=== PATIENT | male | born 1965 | race Hispanic/Latino ===

== ENCOUNTER 2016-12-08 14:35 | Emergency (ER) | payer BC ==
[~2016-12-08] VITALS: Ht 182.9 cm; Wt 105.7 kg
== END 2016-12-08 16:00 | disposition home or self-care (01) ==
LOC: ED 14:35
DX: S61.012A Laceration without foreign body of left thumb without damage to nail, initial encounter (principal); W29.8XXA Contact with other powered hand tools and household machinery, initial encounter; Y92.098 Other place in other non-institutional residence as the place of occurrence of the external cause
CPT/HCPCS: 90471; 90715; 96372; 99282; J0696; J1885

== ENCOUNTER 2018-09-24 08:59 | Outpatient (CLI) | payer OTHER | END 2018-09-24 19:22 | disposition home or self-care (01) | LOC: MRI 08:59 | DX: M79.642 Pain in left hand (principal) ==

== ENCOUNTER 2018-09-29 10:30 | Outpatient (CLI) | payer OTHER | END 2018-09-29 21:25 | disposition home or self-care (01) | LOC: RESP 10:30 | DX: R00.2 Palpitations (principal); R00.1 Bradycardia, unspecified; R42 Dizziness and giddiness; R06.09 Other forms of dyspnea | CPT/HCPCS: 93225 ==

== ENCOUNTER 2019-05-10 09:12 | Outpatient (CLI) | payer OTHER ==
[2019-05-10 09:53] LABS: PLATELET COUNT 261 K/uL (142-355)
[2019-05-10 10:18] LABS: POTASSIUM 4.4 mmol/L (3.6-5.2)
== END 2019-05-10 22:46 | disposition home or self-care (01) ==
LOC: LABW 09:12
PROVIDERS: Family Medicine
DX: E29.1 Testicular hypofunction (principal); E55.9 Vitamin D deficiency, unspecified; R53.83 Other fatigue; I10 Essential (primary) hypertension
CPT/HCPCS: 36415; 80053; 80061; 82306; 82607; 82747; 84153; 84402; 84403; 84443; 85027

== ENCOUNTER 2019-05-18 10:40 | Outpatient (CLI) | payer OTHER | END 2019-05-18 22:31 | disposition home or self-care (01) | LOC: CT 10:40 | DX: Z13.6 Encounter for screening for cardiovascular disorders (principal); R06.02 Shortness of breath; E78.00 Pure hypercholesterolemia, unspecified; E78.1 Pure hyperglyceridemia ==

== ENCOUNTER 2019-07-13 07:56 | Day surgery (SDC) | payer OTHER | END 2019-07-13 10:00 | disposition home or self-care (01) | LOC: OR 07:56 | PROC: 3E0T3BZ Introduction of Anesthetic Agent into Peripheral Nerves and Plexi, Percutaneous Approach (ICD-10-PCS; principal; 2019-07-13) | PROC: 3E0T33Z Introduction of Anti-inflammatory into Peripheral Nerves and Plexi, Percutaneous Approach (ICD-10-PCS; 2019-07-13) | PROC: BR16YZZ Fluoroscopy of Lumbar Facet Joint(s) using Other Contrast (ICD-10-PCS; 2019-07-13) | DX: M47.817 Spondylosis without myelopathy or radiculopathy, lumbosacral region (principal) | CPT/HCPCS: J1100; J2001 ==

== ENCOUNTER 2019-08-03 09:06 | Day surgery (SDC) | payer OTHER ==
[~2019-08-03] VITALS: Ht 185.4 cm; Wt 114.8 kg
== END 2019-08-03 12:15 | disposition home or self-care (01) ==
LOC: OR 09:06
PROC: 3E0T3BZ Introduction of Anesthetic Agent into Peripheral Nerves and Plexi, Percutaneous Approach (ICD-10-PCS; principal; 2019-08-03)
PROC: 3E0T33Z Introduction of Anti-inflammatory into Peripheral Nerves and Plexi, Percutaneous Approach (ICD-10-PCS; 2019-08-03)
PROC: BR16YZZ Fluoroscopy of Lumbar Facet Joint(s) using Other Contrast (ICD-10-PCS; 2019-08-03)
DX: M47.817 Spondylosis without myelopathy or radiculopathy, lumbosacral region (principal)
CPT/HCPCS: J1100; J2001

== ENCOUNTER 2019-11-29 15:15 | Outpatient (CLI) | payer OTHER ==
[2019-11-29 15:36] LABS: PLATELET COUNT 226 K/uL (142-355)
[2019-11-29 16:12] LABS: POTASSIUM 4.7 mmol/L (3.6-5.2)
== END 2019-11-29 19:06 | disposition home or self-care (01) ==
LOC: LAB 15:15
PROVIDERS: Nurse Practitioner Family
DX: Z00.00 Encounter for general adult medical examination without abnormal findings (principal); I10 Essential (primary) hypertension; E55.9 Vitamin D deficiency, unspecified; N52.9 Male erectile dysfunction, unspecified; M54.9 Dorsalgia, unspecified; R53.83 Other fatigue; E78.1 Pure hyperglyceridemia; G47.33 Obstructive sleep apnea (adult) (pediatric); Z79.899 Other long term (current) drug therapy
CPT/HCPCS: 80053; 80061; 82306; 82607; 82670; 83001; 83036; 84402; 84403; 84439; 84443; 84481; 85027; 86376

== ENCOUNTER 2020-02-23 08:32 | Outpatient (CLI) | payer OTHER | END 2020-02-23 21:36 | disposition home or self-care (01) | LOC: MRI 08:32 | DX: M54.12 Radiculopathy, cervical region (principal) ==

== ENCOUNTER 2020-02-28 12:40 | Outpatient (CLI) | payer OTHER | END 2020-02-28 19:27 | disposition home or self-care (01) | LOC: MRI 12:40 | DX: M25.512 Pain in left shoulder (principal) ==

== ENCOUNTER 2020-03-10 09:26 | Outpatient (CLI) | payer OTHER | END 2020-03-10 19:00 | disposition home or self-care (01) | LOC: RAD 09:26 | DX: M25.512 Pain in left shoulder (principal) ==

== ENCOUNTER 2020-04-06 07:31 | Outpatient (CLI) | payer OTHER ==
[2020-04-06 08:20] LABS: PLATELET COUNT 210 K/uL (142-355)
[2020-04-06 08:41] LABS: POTASSIUM 4.1 mmol/L (3.6-5.2)
== END 2020-04-06 19:05 | disposition home or self-care (01) ==
LOC: LABW 07:31
PROVIDERS: Internal Medicine
DX: R94.31 Abnormal electrocardiogram [ECG] [EKG] (principal); Z87.891 Personal history of nicotine dependence; T46.6X5S Adverse effect of antihyperlipidemic and antiarteriosclerotic drugs, sequela; I10 Essential (primary) hypertension; Z71.41 Alcohol abuse counseling and surveillance of alcoholic; G47.30 Sleep apnea, unspecified; E78.2 Mixed hyperlipidemia; R06.02 Shortness of breath; Z68.36 Body mass index [BMI] 36.0-36.9, adult
CPT/HCPCS: 36415; 80048; 80061; 80076; 85027; 85610

== ENCOUNTER 2020-06-27 07:35 | Outpatient (CLI) | payer OTHER ==
[2020-06-27 08:26] LABS: PLATELET COUNT 215 K/uL (142-355)
== END 2020-06-27 23:46 | disposition home or self-care (01) ==
LOC: LABW 07:35
PROVIDERS: Internal Medicine Cardiovascular Disease
DX: R78.81 Bacteremia (principal)
CPT/HCPCS: 36415; 85027; 85651; 86140; 87040

== ENCOUNTER 2020-07-05 07:39 | Outpatient (CLI) | payer OTHER ==
[2020-07-05 08:29] LABS: POTASSIUM 4.3 mmol/L (3.6-5.2)
== END 2020-07-05 23:13 | disposition home or self-care (01) ==
LOC: LABW 07:39
PROVIDERS: Internal Medicine Cardiovascular Disease
DX: R94.31 Abnormal electrocardiogram [ECG] [EKG] (principal); Z87.891 Personal history of nicotine dependence; T46.6X5S Adverse effect of antihyperlipidemic and antiarteriosclerotic drugs, sequela; I10 Essential (primary) hypertension; Z71.41 Alcohol abuse counseling and surveillance of alcoholic; G47.30 Sleep apnea, unspecified; E78.2 Mixed hyperlipidemia; Z95.5 Presence of coronary angioplasty implant and graft; G72.0 Drug-induced myopathy; Z68.35 Body mass index [BMI] 35.0-35.9, adult; Z68.36 Body mass index [BMI] 36.0-36.9, adult; Z95.0 Presence of cardiac pacemaker; I87.2 Venous insufficiency (chronic) (peripheral)
CPT/HCPCS: 36415; 80053; 80061; 84443

== ENCOUNTER 2020-07-26 07:32 | Outpatient (CLI) | payer OTHER ==
[2020-07-26 08:45] LABS: POTASSIUM 4.2 mmol/L (3.6-5.2)
[2020-07-26 10:14] LABS: PLATELET COUNT 227 K/uL (142-355)
== END 2020-07-26 19:02 | disposition home or self-care (01) ==
LOC: RESP 07:32
PROVIDERS: Internal Medicine
DX: N18.3 Chronic kidney disease, stage 3 (moderate) (principal); R06.00 Dyspnea, unspecified; R53.83 Other fatigue; Z79.899 Other long term (current) drug therapy
CPT/HCPCS: 36415; 80053; 81000; 82043; 82306; 82330; 82570; 82607; 82728; 82746; 83036; 83540; 83550; 83735; 83970; 84100; 84155; 84439; 84443; 85027

== ENCOUNTER 2020-10-02 07:52 | Outpatient (CLI) | payer OTHER ==
[~2020-10-02 07:52] MED LIST: AMLO2.5T PO; BAYER ASPIRIN E81 MG PO; CIALIS5 MG PO; CLOP75TA2 PO; KP FOLIC ACID1 MG PO; OMEPRAZOLE DR40 MG PO; RAMI10CA PO; TRAMADOL HYDROC50 MG PO; VITAMIN D22000 UNIT PO
[2020-10-02 08:18] LABS: PLATELET COUNT 261 K/uL (142-355)
[2020-10-02 08:21] LABS: POTASSIUM 3.9 mmol/L (3.6-5.2)
== END 2020-10-02 19:11 | disposition home or self-care (01) ==
LOC: LABW 07:52
PROVIDERS: ATTEND Internal Medicine Cardiovascular Disease
DX: Z01.810 Encounter for preprocedural cardiovascular examination (principal); R94.31 Abnormal electrocardiogram [ECG] [EKG]; Z87.891 Personal history of nicotine dependence; I20.0 Unstable angina; I10 Essential (primary) hypertension; Z71.41 Alcohol abuse counseling and surveillance of alcoholic; G47.30 Sleep apnea, unspecified; E78.2 Mixed hyperlipidemia; Z95.5 Presence of coronary angioplasty implant and graft; G72.0 Drug-induced myopathy; Z68.35 Body mass index [BMI] 35.0-35.9, adult; Z68.36 Body mass index [BMI] 36.0-36.9, adult; Z95.0 Presence of cardiac pacemaker; I87.2 Venous insufficiency (chronic) (peripheral); Z68.34 Body mass index [BMI] 34.0-34.9, adult
CPT/HCPCS: 36415; 80048; 80061; 80076; 85027; 85610

== ENCOUNTER 2020-11-21 07:54 | Outpatient (CLI) | payer OTHER | END 2020-11-21 21:27 | disposition home or self-care (01) | LOC: CT 07:54 | PROVIDERS: ATTEND Thoracic Surgery (Cardiothoracic Vascular Surgery) | DX: R91.1 Solitary pulmonary nodule (principal) | CPT/HCPCS: 36415; 82565; 84520; Q9963 ==

== ENCOUNTER 2020-12-12 07:43 | Outpatient (CLI) | payer OTHER | END 2020-12-12 21:01 | disposition home or self-care (01) | LOC: LABW 07:43 | PROVIDERS: ATTEND Nurse Practitioner | DX: R31.29 Other microscopic hematuria (principal) | CPT/HCPCS: 81000 ==

== ENCOUNTER 2020-12-20 08:02 | Emergency (ER) | payer OTHER ==
[~2020-12-20] VITALS: Ht 185.4 cm; Wt 121.6 kg
[2020-12-20 08:08] VITALS: TEMP 98.5
[2020-12-20 08:50] LABS: PLATELET COUNT 258 K/uL (142-355)
[2020-12-20 08:55] LABS: POTASSIUM 3.6 mmol/L (3.6-5.2); SODIUM 139 mmol/L (136-145)
[2020-12-20 09:21] LABS: PARTIAL THROMBOPLASTIN TIME 20.5 SECONDS (24.5-33.6)
[2020-12-20 09:45] VITALS: BP 123/73
== END 2020-12-20 10:00 | disposition home or self-care (01) ==
LOC: ED 08:02
PROVIDERS: Emergency Medicine
DX: J45.998 Other asthma (principal); R06.09 Other forms of dyspnea; Z20.828 Contact with and (suspected) exposure to other viral communicable diseases
CPT/HCPCS: 36415; 36600; 80053; 82805; 83880; 84484; 85027; 85610; 85730; 87502; 87635; 87651; 93005; 94664; 99284; U0003

== ENCOUNTER 2021-02-13 09:19 | Outpatient (CLI) | payer OTHER | END 2021-02-13 21:00 | disposition home or self-care (01) | LOC: LABW 09:19 | PROVIDERS: ATTEND Nurse Practitioner Family | DX: I51.7 Cardiomegaly (principal); I25.10 Atherosclerotic heart disease of native coronary artery without angina pectoris; I10 Essential (primary) hypertension; R06.02 Shortness of breath | CPT/HCPCS: 36415; 82550; 83880; 84484 ==

== ENCOUNTER 2021-02-22 12:06 | Outpatient (CLI) | payer OTHER | END 2021-02-22 20:35 | disposition home or self-care (01) | LOC: RESP 12:06 | PROVIDERS: ATTEND Internal Medicine Cardiovascular Disease | DX: R06.09 Other forms of dyspnea (principal) ==

== ENCOUNTER 2021-02-23 07:31 | Outpatient (CLI) | payer OTHER ==
[2021-02-23 07:47] LABS: PLATELET COUNT 154 K/uL (142-355)
[2021-02-23 08:21] LABS: POTASSIUM 3.6 mmol/L (3.6-5.2)
== END 2021-02-23 21:43 | disposition home or self-care (01) ==
LOC: LABW 07:31
PROVIDERS: ATTEND Internal Medicine Cardiovascular Disease
DX: E83.9 Disorder of mineral metabolism, unspecified (principal); G72.0 Drug-induced myopathy; I20.0 Unstable angina; R94.31 Abnormal electrocardiogram [ECG] [EKG]; Z68.36 Body mass index [BMI] 36.0-36.9, adult; Z71.41 Alcohol abuse counseling and surveillance of alcoholic; Z95.0 Presence of cardiac pacemaker; E78.2 Mixed hyperlipidemia; I87.2 Venous insufficiency (chronic) (peripheral); I10 Essential (primary) hypertension; Z95.5 Presence of coronary angioplasty implant and graft; Z87.891 Personal history of nicotine dependence; G47.30 Sleep apnea, unspecified
CPT/HCPCS: 36415; 80053; 80061; 85027; 85610

== ENCOUNTER 2021-03-14 07:55 | Outpatient (CLI) | payer OTHER ==
[2021-03-14 08:18] LABS: PLATELET COUNT 239 K/uL (142-355)
[2021-03-14 08:21] LABS: POTASSIUM 3.7 mmol/L (3.6-5.2)
== END 2021-03-14 21:25 | disposition home or self-care (01) ==
LOC: LABW 07:55
PROVIDERS: ATTEND Internal Medicine Cardiovascular Disease
DX: R94.31 Abnormal electrocardiogram [ECG] [EKG] (principal); Z87.891 Personal history of nicotine dependence; I20.0 Unstable angina; I10 Essential (primary) hypertension; Z71.41 Alcohol abuse counseling and surveillance of alcoholic; G47.30 Sleep apnea, unspecified; E78.2 Mixed hyperlipidemia; Z95.5 Presence of coronary angioplasty implant and graft; G72.0 Drug-induced myopathy; Z68.34 Body mass index [BMI] 34.0-34.9, adult; Z68.35 Body mass index [BMI] 35.0-35.9, adult; Z68.36 Body mass index [BMI] 36.0-36.9, adult; Z95.0 Presence of cardiac pacemaker; I87.2 Venous insufficiency (chronic) (peripheral); Z01.810 Encounter for preprocedural cardiovascular examination
CPT/HCPCS: 36415; 80048; 80061; 80076; 85027; 85610

== ENCOUNTER 2021-05-09 08:16 | Outpatient (CLI) | payer OTHER | END 2021-05-09 21:24 | disposition home or self-care (01) | LOC: CT 08:16 | PROVIDERS: ATTEND Thoracic Surgery (Cardiothoracic Vascular Surgery) | DX: R91.1 Solitary pulmonary nodule (principal) | CPT/HCPCS: 36415; 82565; 84520; Q9963 ==

== ENCOUNTER 2021-05-25 07:57 | Outpatient (CLI) | payer OTHER | END 2021-05-25 22:34 | disposition home or self-care (01) | LOC: US 07:57 | PROVIDERS: ATTEND Internal Medicine | DX: R94.5 Abnormal results of liver function studies (principal); R93.5 Abnormal findings on diagnostic imaging of other abdominal regions, including retroperitoneum ==

== ENCOUNTER 2021-06-11 07:57 | Outpatient (CLI) | payer OTHER ==
[2021-06-11 08:35] LABS: POTASSIUM 4.2 mmol/L (3.6-5.2)
[2021-06-11 08:50] LABS: PLATELET COUNT 202 K/uL (142-355)
== END 2021-06-11 19:06 | disposition home or self-care (01) ==
LOC: LABW 07:57
PROVIDERS: ATTEND Internal Medicine Cardiovascular Disease
DX: Z01.810 Encounter for preprocedural cardiovascular examination (principal); R94.31 Abnormal electrocardiogram [ECG] [EKG]; Z87.891 Personal history of nicotine dependence; I20.0 Unstable angina; I10 Essential (primary) hypertension; Z71.41 Alcohol abuse counseling and surveillance of alcoholic; G47.30 Sleep apnea, unspecified; E78.2 Mixed hyperlipidemia; Z95.5 Presence of coronary angioplasty implant and graft; G72.0 Drug-induced myopathy; Z68.34 Body mass index [BMI] 34.0-34.9, adult; Z68.35 Body mass index [BMI] 35.0-35.9, adult; Z68.36 Body mass index [BMI] 36.0-36.9, adult; Z95.0 Presence of cardiac pacemaker; I87.2 Venous insufficiency (chronic) (peripheral); I87.1 Compression of vein
CPT/HCPCS: 36415; 80048; 80061; 80076; 85027; 85610

== ENCOUNTER 2021-06-27 07:21 | Outpatient (CLI) | payer OTHER ==
[2021-06-27 07:44] LABS: PLATELET COUNT 194 K/uL (142-355)
[2021-06-27 07:51] LABS: POTASSIUM 4.2 mmol/L (3.6-5.2)
== END 2021-06-27 23:00 | disposition home or self-care (01) ==
LOC: LABW 07:21
PROVIDERS: ATTEND Internal Medicine Cardiovascular Disease
DX: G72.0 Drug-induced myopathy (principal); I20.0 Unstable angina; R94.31 Abnormal electrocardiogram [ECG] [EKG]; Z68.34 Body mass index [BMI] 34.0-34.9, adult; Z68.35 Body mass index [BMI] 35.0-35.9, adult; Z68.36 Body mass index [BMI] 36.0-36.9, adult; Z71.41 Alcohol abuse counseling and surveillance of alcoholic; Z95.0 Presence of cardiac pacemaker; E78.2 Mixed hyperlipidemia; I87.2 Venous insufficiency (chronic) (peripheral); I10 Essential (primary) hypertension; Z95.5 Presence of coronary angioplasty implant and graft; Z87.891 Personal history of nicotine dependence; I87.1 Compression of vein; G47.30 Sleep apnea, unspecified
CPT/HCPCS: 36415; 80048; 85027; 85610

== ENCOUNTER 2021-10-23 09:16 | Outpatient (CLI) | payer OTHER ==
[2021-10-23 09:31] LABS: PLATELET COUNT 235 K/uL (142-355)
[2021-10-23 10:37] LABS: POTASSIUM 3.8 mmol/L (3.6-5.2)
== END 2021-10-23 19:02 | disposition home or self-care (01) ==
LOC: LABW 09:16
PROVIDERS: ATTEND Internal Medicine Cardiovascular Disease
DX: R94.31 Abnormal electrocardiogram [ECG] [EKG] (principal); Z87.891 Personal history of nicotine dependence; I20.0 Unstable angina; I10 Essential (primary) hypertension; Z71.41 Alcohol abuse counseling and surveillance of alcoholic; G47.30 Sleep apnea, unspecified; E78.2 Mixed hyperlipidemia; Z95.5 Presence of coronary angioplasty implant and graft; G72.0 Drug-induced myopathy; Z68.34 Body mass index [BMI] 34.0-34.9, adult; Z68.35 Body mass index [BMI] 35.0-35.9, adult; Z68.36 Body mass index [BMI] 36.0-36.9, adult; Z95.0 Presence of cardiac pacemaker; I87.2 Venous insufficiency (chronic) (peripheral); I87.1 Compression of vein; Z09 Encounter for follow-up examination after completed treatment for conditions other than malignant neoplasm
CPT/HCPCS: 36415; 80048; 85027; 85610

== ENCOUNTER 2023-05-26 07:50 | Outpatient (CLI) | payer OTHER | END 2023-05-26 21:50 | disposition home or self-care (01) | LOC: CT 07:50 | PROVIDERS: ATTEND Nurse Practitioner Family | DX: R10.9 Unspecified abdominal pain (principal) | CPT/HCPCS: 36415; 82565; 84520; Q9963 ==